=== PATIENT | male | born 1940 | race Caucasian/White ===

== ENCOUNTER → 2019-09-26 | Outpatient (CLI) | payer OTHER ==
--- NOTE | 2019-09-26 09:58 | EKG ---
[address] [address] ELECTROCARDIOGRAM REPORT Name: ALEJANDRO MURO Room #: REG CLI [id number]: 09/26/19 Attend Phys: Howard Richmond MD Discharge: Date of : 44 Report #: [id number] THIS REPORT FOR: //name// [facility] Test Date: 2019-09-26 Test Time: 09:45:37 Pat Name: ALEJANDRO MURO Department: Room: Gender: M [employer]: [facility] : 1940 Requested By: Marquez Allen Order Number: [id number] MD: Llody Alas Measurements Intervals [place] Rate: 72 P: 53 NJ: 212 QRS: 70 QRSD: 91 T: 41 QT: 391 QTc: 428 Interpretive Statements Sinus rhythm Borderline prolonged [place] interval Repolarization abnormality No previous ECG available for comparison Electronically Signed On 09-26-2019 9:58:02 [employer] ASSOCIATE by Lloyd Alas [email or web address] <ELECTRONICALLY SIGNED> By: Lloyd Alas MD, [facility] 09/26/19 0958 [id number] [id number] Lloyd Alas MD, FACC /EPI
--- NOTE | 2019-09-26 11:09 | 2DMMODE ---
[facility] [place] [address] 2 D/M-MODE ECHOCARDIOGRAM Name: ALEJANDRO MURO Room #: REG CL [facility]#: [id number] Admission: 09/26/19 Attend Phys: Howard Richmond MD Discharge: Date of : 44 Report #: [id number] THIS REPORT FOR: //name// APPROVED REPORT Study performed: 09/26/2019 10:01:03 EXAM: Comprehensive 2D, Doppler, and color-flow Echocardiogram Patient Location: Out-Patient Status: routine BSA: 1.87 HR: 68 bpm BP: 130/70 mmHg Rhythm: NSR Other Information Study Quality: Good Indications Ischemic heart disease. Hx: CABG, PCIs, HTN, HLP. 2D Dimensions RVDd: 42.22 mm IVSd: 12.50 (7-11mm) LVOT Diam: 21.18 (18-24mm) LVDd: 41.97 mm PWd: 11.94 (7-11mm) Ascending Ao: 30.75 (22-36mm) LVDs: 29.24 (25-40mm) Aortic Root: 34.74 mm Volumes Left Atrial Volume (Systole) Single Plane 4CH: 56.46 mL Single Plane 2CH: 77.31 mL LA ESV Index: 37.00 mL/m2 Aortic Valve AoV Peak Fred.: 2.62 m/s AO Peak Gr.: 27.45 mmHg LVOT Max P.45 mmHg AO Mean Gr.: 12.75 mmHg AO V2 Mean: 1.61 m/s LVOT Max V: 1.06 m/s AO V2 VTI: 50.61 cm KASIE Vmax: 1.42 cm2 Mitral Valve [facility] [address] [address] 2 D/M-MODE ECHOCARDIOGRAM Name: ALEJANDRO MURO Room #: REG [facility]#: [id number] Admission: 09/26/19 Attend Phys: Howard Richmond MD Discharge: Date of : 44 Report #: [id number] E/A Ratio: 1.2 MV Decel. Time: 219.84 ms MV E Max Fred.: 1.00 m/s MV A Fred.: 0.83 m/s MV PHT: 63.75 ms IVRT: 78.43 ms Pulmonary Valve PV Peak Fred.: 1.03 m/s PV Peak Gr.: 4.20 mmHg Pulmonary Vein P Vein S: 0.52 m/s P Vein A: 0.20 m/s P Vein D: 0.63 m/s P Vein A Dur.: 101.5 msec P Vein S/D Ratio: 0.83 Tricuspid Valve TR Peak Fred.: 2.59 m/s RAP Estimate: 5.00 mmHg TR Peak Gr.: 27.00 mmHg PA Pressure: 32.00 mmHg Left Ventricle The left ventricle is normal size. There is normal LV segmental wall motion. Mild concentric left ventricular hypertrophy. Left ventricular systolic function is normal. LVEF is 60-65%. Moderate diastolic dysfunction is present (pseudonormal filling). Right Ventricle Right ventricle is at the upper limits of normal. The right ventricular systolic function is normal. Atria Left atrium is mildly dilated. Right atrium is mildly dilated. Aortic Valve The aortic valve is normal in structure. Leaflets are heavily thickened and calcified. No aortic regurgitation is present. There is moderate valvular aortic stenosis. Calculated aortic valve area is 1.4 cm2 with maximum pressure gradient of 27 mmHg and mean pressure gradient of 13 mmHg. Mitral Valve Mitral valve leaflets are mildly thickened. Mild mitral annular calcification. Mild mitral regurgitation. Tricuspid Valve [address] [address] 2 D/M-MODE ECHOCARDIOGRAM Name: ALEJANDRO MURO Room #: REG CL [facility]#: [id number] Admission: 09/26/19 Attend Phys: Howard Richmond MD Discharge: Date of : 44 Report #: [id number] The tricuspid valve is normal in structure. Mild to moderate tricuspid regurgitation. Estimated PAP is 30-35mmHg. Pulmonic Valve The pulmonary valve is normal in structure. Mild pulmonic regurgitation. Great Vessels The aortic root is normal in size. The ascending aorta is normal in size. IVC is normal in size and collapses >50% with inspiration. Pericardium There is no pericardial effusion. <Conclusion> The left ventricle is normal size. LVEF is 60-65%. Left atrium is mildly dilated. Right atrium is mildly dilated. The aortic valve is normal in structure. Leaflets are heavily thickened and calcified. There is moderate valvular aortic stenosis. Calculated aortic valve area is 1.4 cm2 with maximum pressure gradient of 27 mmHg and mean pressure gradient of 13 mmHg. Mitral valve leaflets are mildly thickened. Mild mitral annular calcification. Mild mitral regurgitation. The tricuspid valve is normal in structure. Mild to moderate tricuspid regurgitation. Estimated PAP is 30-35mmHg. The pulmonary valve is normal in structure. Mild pulmonic regurgitation. There is no pericardial effusion. <ELECTRONICALLY SIGNED> By: Clint Rojas MD 09/26/19 1108 1108 1108 Clint Rojas MD /INF
== END ==
LOC: CV 09:25
DX: I08.8 Other rheumatic multiple valve diseases (principal); I48.91 Unspecified atrial fibrillation; I25.9 Chronic ischemic heart disease, unspecified; I11.9 Hypertensive heart disease without heart failure; E78.5 Hyperlipidemia, unspecified; Z95.5 Presence of coronary angioplasty implant and graft